=== PATIENT | male | born 1965 | race Caucasian/White ===

== ENCOUNTER 2017-03-20 09:06 | Emergency (ER) | payer OTHER ==
[2017-03-20 09:20] VITALS: BP 154/116
--- NOTE | 2017-03-20 09:50 | UC ---
Back Pain HPI - HPI Summary HPI Summary: complaint of lower back pain that started aprox 1 week ago was moving heavier boxes by himself for a long shift constant aching pain that radites into both of his buttocks movement makes the pain shoot into his buttocks lying down on his back and side lessenes the pain has been giving hi massgaes and PT with but it isn't helping taking mobic, oxycodone for his fibromyalgia without relief denies incontinence, fever, unexlpalinaed weigth loss denies numbness , weakness and tingking in extremities - History of Current Complaint Chief Complaint: UCBackPain Stated Complaint: low back pain (wc) Time Seen by Provider: 03/20/17 09:44 Hx Obtained From: Patient - Allergies/Home Medications Allergies/Adverse Reactions: Allergies Allergy/AdvReac Type Severity Reaction Status Date / Time No Known Allergies Allergy Verified 03/20/17 09:13 Home Medications: Home Medications oxyCODONE/Acetamin 5/325 MG* [Percocet 5/325 TAB*] 1 tab PO Q8H PRN 03/20/17 [ History Confirmed 03/20/17] PMH/Surg Hx/FS Hx/Imm Hx Previously Healthy: No - fibromyalgia, arthritis in both hands Endocrine History Of: Denies: Diabetes Cardiovascular History Of: Denies: Cardiac Disorders Respiratory History Of: Denies: Asthma GI/ History Of: Reports: Gastroesophageal Reflux - Surgical History Surgical History: None - Family History Known Family History: Positive: Cardiac Disease - father NI Negative: Hypertension, Diabetes - Social History Occupation: Employed Full-time Alcohol Use: None Substance Use Type: Prescribed Smoking Status (MU): Never Smoked Tobacco Review of Systems Constitutional: Negative Skin: Negative Eyes: Negative ENT: Negative Respiratory: Negative Cardiovascular: Negative Gastrointestinal: Negative Genitourinary: Negative Motor: Negative Neurovascular: Negative Musculoskeletal: Other: - lower back pain Neurological: Negative Psychological: Negative All Other Systems Reviewed And Are Negative: Yes Physical Exam Triage Information Reviewed: Yes Appearance: Well-Nourished, Pain Distress, Thin Vital Signs: Initial Vital Signs Temp 98.5 F 03/20/17 09:15 Pulse 103 03/20/17 09:15 Resp 18 03/20/17 09:15 BP 154/116 03/20/17 09:15 Eyes: Positive: Conjunctiva Clear ENT: Positive: Pharynx normal, TMs normal Neck: Positive: No Lymphadenopathy Respiratory: Positive: Lungs clear, Normal breath sounds, No respiratory distress, No accessory muscle use Cardiovascular: Positive: RRR, No Murmur, Pulses Normal Abdomen Description: Positive: Nontender, No Organomegaly, Soft. Negative: CVA Tenderness (R), CVA Tenderness (L), Distended, Guarding Bowel Sounds: Positive: Present Musculoskeletal: Positive: Other: - Spine have no noted deformities or signs of inflammation. Curvature of thoracic, and lumbar spine are within normal limits. Bony features of shoulders and hips are of equal height bilaterally. Posture is slightly flexed, and gait is uneven. Spinous processes of T1-L5 palpable, midline, and non-tender; No step-offs. Back muscles right and left paraspinal tenderness. Flexion, extension, and rotation of the remaining spinal column is limited due to pain. . Lateral bending causes no discomfort Neurological: Positive: Alert, Other: - patellarreflexes intact , able to move his toes, negative SLR Psychological Exam: Normal Skin Exam: Normal Back Pain Course/Dx - Differential Dx/Diagnosis Differential Diagnosis/HQI/PQRI: Herniated Disc, Strain, Sprain Provider Diagnoses: lower back pain with radiculopathy Discharge - Discharge Plan Condition: Stable Disposition: HOME Prescriptions: Cyclobenzaprine TAB* [Flexeril 10 MG TAB*] 10 mg PO BID PRN #20 tab PRN Reason: Spasms - Muscle Ibuprofen TAB* [Motrin TAB* 800 MG] 800 mg PO Q8H #30 tab Patient Education Materials: Lumbar Radiculopathy (ED) Forms: *Work Release Additional Instructions: Start flexeril as directed. Do not drink alcohol or drive while taking flexeril. Please call physical therapy for further evaluation and treatment. stop taking meloxicam while taking ibuprofen Take ibuprofen for fever or pain. Increase fluids and rest. Please review your discharge instructions. If your symptoms do not improve please call your primary care provider or return to urgent care. Your blood pressure is elevated. Please contact your primary care provider within 1 day -4 weeks for further evaluation
[2017-03-20] MEDS ORDERED: Ketorolac INJ* 60 MG/2 ML VIAL IM ONE (10:00)
== END 2017-03-20 10:45 | disposition home or self-care (01) ==
LOC: UCCORT 09:06
DX: M54.5 Low back pain (principal); M54.16 Radiculopathy, lumbar region; K21.9 Gastro-esophageal reflux disease without esophagitis
CPT/HCPCS: 96372; 99202; G0463; J1885

== ENCOUNTER 2018-07-04 11:39 | Emergency (ER) | payer OTHER ==
[2018-07-04 12:15] VITALS: BP 156/110
[2018-07-04] MEDS ORDERED: HYDROcodone/ACETAMIN 5-325 MG* 1 TAB PO ONE (13:06)
--- NOTE | 2018-07-04 13:13 | UC ---
Shoulder Pain HPI - HPI Summary HPI Summary: Patient was pushing a heavy tote onto a shelf over his head and got a sudden pain in his L shoulder. He also heard it pop. This happened while at work yesterday. He noted the pain is under the shoulder blade and around the L shoulder. He notes mm spasm with movement. - History of Current Complaint Chief Complaint: UCUpperExtremity Stated Complaint: LEFT SHOULDER INJURY (WC) Time Seen by Provider: 07/04/18 12:27 Hx Obtained From: Patient Onset/Duration: Sudden Onset Timing: Constant Pain Intensity: 8 Aggravating Factor(s): Movement Associated Signs And Symptoms: Negative: Swelling, Weakness, Numbness/Tingling - Allergies/Home Medications Allergies/Adverse Reactions: Allergies Allergy/AdvReac Type Severity Reaction Status Date / Time No Known Allergies Allergy Verified 07/04/18 12:03 Home Medications: Home Medications Acetaminophen TAB* [Tylenol TAB*] 650 mg PO Q4H PRN 07/04/18 [History Confirmed 07/04/18] Losartan TAB* [Cozaar TAB*] 25 mg PO DAILY 07/04/18 [History Confirmed 07/04/18] Meloxicam [Mobic] 15 mg PO DAILY 07/04/18 [History Confirmed 07/04/18] PMH/Surg Hx/FS Hx/Imm Hx - Additional Past Medical History Additional PMH: Fibromyalgia Cardiovascular History: Hypertension GI/ History: Gastroesophageal Reflux - Surgical History Surgical History: Yes Surgery Procedure, Year, and Place: ADNOIDECTOMY - Family History Known Family History: Positive: Cardiac Disease - father NI Negative: Hypertension, Diabetes - Social History Occupation: Employed Full-time Lives: With Family Alcohol Use: Occasionally Substance Use Type: None Smoking Status (MU): Never Smoked Tobacco - Immunization History Vaccination Up to Date: Yes Review of Systems Constitutional: Negative Skin: Negative Eyes: Negative ENT: Negative Respiratory: Negative Cardiovascular: Negative Gastrointestinal: Negative Genitourinary: Negative Motor: Negative Neurovascular: Negative Musculoskeletal: Myalgia - chronic pain, Other: - L shoulder pain Neurological: Negative Psychological: Negative Is Patient Immunocompromised?: No All Other Systems Reviewed And Are Negative: Yes Physical Exam Triage Information Reviewed: Yes Appearance: Well-Appearing Vital Signs: Initial Vital Signs Temp 98.4 F 07/04/18 12:06 Pulse 106 07/04/18 12:06 Resp 18 07/04/18 12:06 BP 156/110 07/04/18 12:06 Pulse Ox 100 07/04/18 12:06 Vital Signs Reviewed: Yes Eyes: Positive: Conjunctiva Clear ENT: Positive: Normal ENT inspection Neck: Positive: Supple, Nontender, No Lymphadenopathy, Other: - c-spine not tender and no trapezius mm tenderness. Respiratory: Positive: Chest non-tender, Lungs clear, Normal breath sounds Cardiovascular: Positive: RRR, No Murmur, Pulses Normal Abdomen Description: Positive: Nontender, No Organomegaly, Soft Bowel Sounds: Positive: Present Musculoskeletal: Positive: Other: - LUE exam: Inspection of left shoulder when compared to the right shows some mild flattening of the muscle to the posterior shoulder. He has generalized tenderness to palpation of the muscles around his shoulder girdle. Active and passive range of motion of the shoulder is limited by pain. He has very limited abduction and positive drop arm test as well. There is no bony deformity or tenderness. The area distal to the shoulder is without gross deformity swelling or discoloration. There is no tenderness to palpation of the forearm wrist and hand have full sensorivascular motor function. Neurological: Positive: Alert Psychological: Positive: Age Appropriate Behavior Skin Exam: Normal Shoulder Course/Dx - Course Course Of Treatment: I have no concern for fracture or dislocation. I do think that there is a high probability of rotator cuff injury. We'll treat with a sling. Patient is already on Mobic. He was advised that is okay to take Tylenol. He has requested a muscle relaxer for muscle spasm thus [place] for Flexeril. I did write him for a single [place] which he can take upon arriving home. We were able to make him a follow-up appointment with orthopedics for tomorrow. I will also keep patient in the sling and provide him a note to be out of work for up to 3 days continue the sling when he returns until directed otherwise by orthopedics. - Differential Dx/Diagnosis Provider Diagnoses: Acute left shoulder pain. Probable rotator cuff injury. Discharge - Sign-Out/Discharge Documenting (check all that apply): Patient Departure All imaging exams completed and their final reports reviewed: No Studies - Discharge Plan Condition: Stable Disposition: HOME Prescriptions: Cyclobenzaprine TAB* [Flexeril 10 MG TAB*] 10 mg PO TID PRN #10 tab PRN Reason: Pain Patient Education Materials: Shoulder Pain (ED) Forms: *Work Release Referrals: Vini Ayers MD [Medical Doctor] - Additional Instructions: FOLLOW UP DR AYERS AT 2PM TOMORROW (07/05/18) SCHEDULED BY THIS [facility] SLING UNTIL CLEARED. TAKE THE PAIN PILL WHEN YOU GET HOME. YOU MAY NOT DRIVE TODAY AFTER TAKING THE [place] BECAUSE IT IS A NARCOTIC. - Billing Disposition and Condition Condition: STABLE Disposition: Home
== END 2018-07-04 13:35 | disposition home or self-care (01) ==
LOC: UCCORT 11:39
DX: M25.512 Pain in left shoulder (principal); M62.838 Other muscle spasm; I10 Essential (primary) hypertension
CPT/HCPCS: 99213; G0463